=== PATIENT | female | born 1940 | race Caucasian/White ===

== ENCOUNTER 2019-05-04 05:36 | Inpatient (IN) | payer MEDICARE, OTHER ==
[~2019-05-04] VITALS: Ht 154.9 cm; Wt 78.1 kg
[2019-05-11 12:45] VITALS: BP 122/68
== END 2019-05-11 16:30 | DRG 682 ==
LOC: ED 06:53 → EDIP 07:27 → 4EST 09:05
PROVIDERS: ADMIT Internal Medicine; ATTEND Internal Medicine
DX: N17.0 Acute kidney failure with tubular necrosis (principal); J15.9 Unspecified bacterial pneumonia; J96.01 Acute respiratory failure with hypoxia; E43 Unspecified severe protein-calorie malnutrition; K51.90 Ulcerative colitis, unspecified, without complications; N18.3 Chronic kidney disease, stage 3 (moderate); E83.52 Hypercalcemia; E89.0 Postprocedural hypothyroidism; E87.6 Hypokalemia; R33.9 Retention of urine, unspecified; C50.919 Malignant neoplasm of unspecified site of unspecified female breast; Z90.710 Acquired absence of both cervix and uterus; Z90.49 Acquired absence of other specified parts of digestive tract; Z85.3 Personal history of malignant neoplasm of breast; Z88.8 Allergy status to other drugs, medicaments and biological substances; Z68.32 Body mass index [BMI] 32.0-32.9, adult
CPT/HCPCS: 36415; 71045; 71250; 72192; 72197; 76770; 77075; 78306; 80048; 80053; 81001; 82040; 82306; 82330; 82397; 82436; 82570; 83605; 83735; 83880; 83970; 84100; 84133; 84145; 84155; 84156; 84165; 84166; 84300; 84439; 84443; 84484; 85025; 87040; 87086; 93005; 93306; 96361; 96365; 96375; A9585; G0378; J0456; J0696; J1644; J3475; J3480; J7060; A9503; J0630; J7030; J7050